=== PATIENT | male | born 1940 | race Caucasian/White ===

== ENCOUNTER → 2016-07-22 | Outpatient (CLI) | payer OTHER, MEDICARE | LOC: BMCIMAGING 13:41 | PROVIDERS: ATTEND Internal Medicine | DX: Z13.820 Encounter for screening for osteoporosis (principal); M85.80 Other specified disorders of bone density and structure, unspecified site; E03.9 Hypothyroidism, unspecified ==

== ENCOUNTER → 2017-05-13 | Outpatient (CLI) | payer OTHER, MEDICARE | LOC: BMCIMAGING 15:44 | PROVIDERS: ATTEND Internal Medicine | DX: M16.11 Unilateral primary osteoarthritis, right hip (principal) ==

== ENCOUNTER → 2017-06-14 | Outpatient (CLI) | payer OTHER, MEDICARE | LOC: BRMIMAGING 14:30 | PROVIDERS: ATTEND Internal Medicine Endocrinology, Diabetes & Metabolism | DX: E04.1 Nontoxic single thyroid nodule (principal) ==